=== PATIENT | female | born 1945 | race Caucasian/White ===

== ENCOUNTER 2017-03-10 22:30 | Emergency (ER) | payer OTHER ==
[~2017-03-10] VITALS: Ht 167.6 cm; Wt 90.7 kg
[2017-03-10] MEDS ORDERED: ATORVASTATIN CA10 MG (22:39)
[2017-03-10] MEDS ORDERED: ATENOLOL50 MG (22:39)
[2017-03-11] MEDS ORDERED: INDOMETHACIN75 MG PO (03:36)
== END 2017-03-11 03:36 | disposition home or self-care (01) ==
LOC: ER 22:30
DX: M10.072 Idiopathic gout, left ankle and foot (principal); M79.672 Pain in left foot